=== PATIENT | male | born 1955 | race Caucasian/White ===

== ENCOUNTER 2023-08-09 01:28 | Day surgery (SDC) | payer MEDICARE, OTHER, SELFPAY ==
[2023-07-12 08:56] VITALS: BMI 28.1
--- NOTE | 2023-08-05 10:23 | SUR.PREOP ---
Patient called regarding upcoming procedure. Reviewed preop instructions, appointment times, and procedure prep.
[2023-08-09 06:12] VITALS: BP 118/69; PULSE 61; RESP 16; TEMP 35.9; O2SAT 98; BMI 27.9
[2023-08-09] MEDS: LACTATED RINGERS 1,000 ML 150 ML IV CONT (06:25)
--- NOTE | 2023-08-09 07:19 | PM.HPGS ---
History of Present Illness History of Present Illness Consent: Risks, benefits, and alternatives have been discussed and questions answered. Patient agrees to proceed with procedure. Chief complaint: neoplasm screening Narrative: Jn Morris is a 67 year old male here for screening colonoscopy, last one about 10 years ago Review of Systems Constitutional: Constitutional: Denies headache(s) and Denies weakness Eyes: Eyes: Denies blurry vision ENT: Reports Normal hearing present, Denies headache(s) and Denies neck pain Cardiovascular: Cardiovascular: Denies chest pain and Denies dyspnea Respiratory: Respiratory: Denies dyspnea Gastrointestinal: Gastrointestinal: Reports no additional gastrointestinal complaints Genitourinary: Genitourinary: Denies dysuria Musculoskeletal: Musculoskeletal: Denies neck pain Integumentary/Breasts: Skin/Breast: Denies dry skin Neurologic: Reports Normal hearing present, Denies headache(s) and Denies weakness Psychiatric: Psychiatric: Denies anxiety Endocrine: Endocrine: Denies change in body appearance Hematologic/Lymphatic: Hematologic/Lymphatic: Denies easy bleeding Allergic/Immunologic: Allergic/Immunologic: Denies urticaria PMFSH Past Medical History Medical History (Updated 08/09/23 @ 07:19 by Slava Gresham MD) Colon cancer screening Surgical History Surgical History History of total bilateral knee replacement (~2012) Family History Family History Father Malignant neoplasm of prostate Mother Hypertension Sibling Hypertension Social History Social History Smoking status: Never smoker Alcohol intake: current Drinks per week: 12 Alcohol use details: BEER Substance use: never Substance use type: does not use Living arrangements: with family Occupation/Education: retired Gender identity (if verbalized by the patient): Male Spiritual care concerns: No Agree to blood products: Yes Meds Home Medications and Allergies Home Medications Medication Instructions Recorded Confirmed Type losartan 100 mg tablet 100 mg PO DAILY #90 tabs 07/18/23 08/09/23 Rx amlodipine 5 mg tablet See Rx Instructions .Route 07/19/23 08/09/23 Rx .COMPLEX #90 tabs Allergies Allergy/AdvReac Type Severity Reaction Status Date / Time No Known Allergies Allergy Verified 08/09/23 06:19 Vital Signs Vital Signs - 24 hr 08/09/23 06:12 Temperature 96.7 F L Pulse Rate 61 Respiratory Rate 16 Blood Pressure 118/69 Pulse Oximetry 98 Oxygen Delivery Room Air Exam Const: General: comfortable and no acute distress HENMT: Face/Nose/Sinus: Normal nares present Eyes: General: appearance normal, both eyes and all related structures Neck: Neck: no JVD Resp: Auscultation: clear to auscultation bilaterally Cardio: Rate: regular rate Rhythm: regular rhythm GI: Inspection: non-distended GI Palp: Yes Soft to palpation Skin: General skin exam: normal color Neuro: General: gait normal Speech: normal speech Extrem: General: normal to inspection Psych: Mental Status: mental status grossly normal Assessment and Plan Assessment and plan (1) Colon cancer screening: Code(s): Z12.11 - Encounter for screening for malignant neoplasm of colon Status: Acute Assessment and Plan: colonoscopy
--- NOTE | 2023-08-09 07:26 | P.PNAN_ITS ---
Anes - Initial Pre Proc Eval Procedure: Operation Date: 08/09/23 07:30 Proposed Procedures p Screening Colonoscopy - Slava Gresham MD Date/Time: 08/09/23 07:26 Surgeon: Slava Gresham MD Pre Op Diagnosis: neoplasm screening Patient Data Age: 67 Gender: M Height: 1.78 m Weight: 88.4 kg Last Vital Signs Temp 96.7 F L 08/09/23 06:12 Pulse 61 08/09/23 06:12 Resp 16 08/09/23 06:12 BP 118/69 08/09/23 06:12 Pulse Ox 98 08/09/23 06:12 O2 Del Method Room Air 08/09/23 06:12 Allergies Allergy/AdvReac Type Severity Reaction Status Date / Time No Known Allergies Allergy Verified 08/09/23 06:19 Home Medications Medication Instructions Recorded Confirmed Type losartan 100 mg tablet 100 mg PO DAILY #90 tabs 07/18/23 08/09/23 Rx amlodipine 5 mg tablet See Rx Instructions .Route 07/19/23 08/09/23 Rx .COMPLEX #90 tabs Patient hx anesthesia problems: none Family hx anesthesia problems: none Results Review: All pre-operative results and documents have been reviewed as part of the pre- operative evaluation. [facility] Past Medical History Medical History (Updated 08/09/23 @ 07:19 by Slava Gresham MD) Colon cancer screening Surgical History Surgical History History of total bilateral knee replacement (~2012) Family History Family History Father Malignant neoplasm of prostate Mother Hypertension Sibling Hypertension Social History Social History Smoking status: Never smoker Alcohol intake: current Drinks per week: 12 Alcohol use details: BEER Substance use: never Substance use type: does not use Living arrangements: with family Occupation/Education: retired Gender identity (if verbalized by the patient): Male Spiritual care concerns: No Agree to blood products: Yes Anes - Eval Final PreProcedure Day of Procedure 08/09/23 07:26 Patient weight: normal Heart: regular rate and rhythm Lungs: clear to auscultation Airway: Mallampati scale class II Neurological: alert and oriented Last oral intake: >/= 8 hours ASA classification: II Emergent: no Anesthetic plan: proceed Anesthesia type and monitoring: general GIVS and standard monitoring Results Review: All pre-operative results and documents have been reviewed as part of the pre- operative evaluation. Informed Consent: The patient's anesthetic plan and its attendant risks and benefits were discussed with the patient/family/POA. Questions were solicited and answers pro vided to the satisfaction of the patient/family/POA.
[2023-08-09 07:43] VITALS: BP 88/59; PULSE 57; RESP 16; O2SAT 98
[2023-08-09 07:53] VITALS: BP 93/62; PULSE 57; RESP 14; O2SAT 99
[2023-08-09 08:03] VITALS: BP 101/69; PULSE 52; RESP 16; O2SAT 100
== END 2023-08-09 08:11 | disposition home or self-care (01) ==
PROVIDERS: PCP Nurse Practitioner Family; Visit Provider Internal Medicine Gastroenterology
PROC: 0DJD8ZZ Inspection of Lower Intestinal Tract, Via Natural or Artificial Opening Endoscopic (ICD-10-PCS; CPT 45378; principal; 2023-08-09 07:30)
DX: Z12.11 Encounter for screening for malignant neoplasm of colon (principal); D12.2 Benign neoplasm of ascending colon; K57.30 Diverticulosis of large intestine without perforation or abscess without bleeding
CPT/HCPCS: 45385; 88305; J2704; J7120